=== PATIENT | male | born 1950 ===

== ENCOUNTER → 2018-09-26 22:14 | Outpatient (REF) | payer OTHER, SELFPAY ==
[2018-09-26 23:26] LABS: Add Manual Diff / Slide Review NO; Basophils Absolute Auto 0 /uL (0-100); Basophils Percent Auto 0.4 % (0-2); Eosinophils Absolute Auto 100 /uL (0-450); Hematocrit 44.9 % (41-53); Hemoglobin 15.1 g/dL (13.5-17.5); Lymphocytes Absolute Auto 1400 /uL (1100-4500); Lymphocytes Percent Auto 35.2 % (25-40); Mean Corpuscular HGB Conc 33.8 % (30-36); Mean Corpuscular Hemoglobin 30.5 PG (26-34); Mean Corpuscular Volume 90.4 fL (80-100); Monocytes Absolute Auto 300 /uL (0-900); Neutrophils Absolute Auto 2100 /uL (1500-7000); Neutrophils Percent Auto 53.4 % (50-75); Platelet Count 216 X10^3/uL (150-400); Red Blood Cell Count 4.96 X10^6/uL (4.5-5.9); Red Cell Distribution Width 13.9 % (11.6-14.8)
[2018-09-27 01:55] LABS: Blood Urea Nitrogen 21 mg/dL (9-20); Calcium 9.8 mg/dL (8.4-10.2); Carbon Dioxide 28 mmol/L (22-32); Chloride 104 mmol/L (98-107); Estimated Glomerular Filt Rate > 60.0 mL/min (>60); Glucose 92 mg/dL (80-110); HEMOLYSIS < 15 (0-50); Sodium 140 mmol/L (137-145)
[2018-09-27 04:15] LABS: Free T3, Triiodothyronine Free 3.86 pg/mL (2.77-5.27)
[2018-09-27 04:29] LABS: Thyroid Stimulating Hormone 0.16 uIU/mL (0.47-4.68)
[2018-09-30 14:37] LABS: PSA Free % 23 % (calc) (> 25); PSA, Total 5.7 ng/mL (< 4.1)
== END ==
LOC: LAB 22:14
PROVIDERS: Visit Provider Naturopath
DX: E03.9 Hypothyroidism, unspecified (principal); N40.1 Benign prostatic hyperplasia with lower urinary tract symptoms; E78.00 Pure hypercholesterolemia, unspecified; R63.5 Abnormal weight gain
CPT/HCPCS: 36415; 80048; 84153; 84154; 84436; 84443; 84481; 85025